=== PATIENT | male | born 1995 | race Two or more races ===

== ENCOUNTER 2022-12-29 14:50 | Emergency (ER) | payer OTHER, SELFPAY ==
[2022-12-29 15:29] VITALS: BP 113/77; PULSE 91; RESP 22; TEMP 36.3; O2SAT 100; BMI 21.4
--- NOTE | 2022-12-29 15:34 | ED_ITS ---
HPI - Nausea/Vomiting/Diarrhea General Chief complaint: Abdominal Pain Stated complaint: vomiting, diarrhea, chills Related Data Allergies Allergy/AdvReac Type Severity Reaction Status Date / Time No Known Allergies Allergy Unverified 07/04/20 16:25 [facility] Social History Social History Advance Directives: No Advance Directives Information Provided: No Physical Exam Vital Signs: Vital Signs: Last Vital Signs Temp 97.4 F 12/29/22 15:29 Pulse 91 12/29/22 15:29 Resp 22 H 12/29/22 15:29 BP 113/77 12/29/22 15:29 Pulse Ox 100 12/29/22 15:29 O2 Del Method 12/29/22 15:29 BMI result Body Mass Index 21.4 Course Course Course Narrative: RME--27yo M w/no sig PMHx, c/o abdominal pain, nausea, vomiting, & diarrhea since this AM. Denies travel, suspicious food intake, drugs or ETOH Diaphoretic, mildly pale, actively vomiting in triage, abd soft with mild epigasrtic ttp, no rebound or guarding Labs, UA ordered, SL Zofran given in triage Medications Administered Discontinued Medications Generic Name Dose Route Start Last Admin Trade Name Freq PRN Reason Stop Dose Admin Ondansetron HCl 4 mg 12/29/22 15:35 12/29/22 15:42 Ondansetron Odt 4 Mg Tab.Rapdis TRANSLINGU 12/29/22 15:36 4 mg ONCE ONE Administration Discharge Plan Discharge Clinical Impression: Abdominal pain Patient Disposition: [facility] Interventions: ED Discharge Assessment Last Done: 12/29/22 17:42 Discharge Date/Time: 12/29/22 17:42
[2022-12-29] MEDS: Ondansetron ODT 4 MG TAB.RAPDIS TRANSLINGU (15:42)
== END 2022-12-29 17:42 | disposition left against medical advice (07) ==
PROVIDERS: Emergency Provider Internal Medicine
DX: R10.9 Unspecified abdominal pain (principal)
CPT/HCPCS: 99282; 99283